=== PATIENT | female | born 1930 | race Hispanic/Latino ===

== ENCOUNTER 2017-12-30 21:56 | Observation (INO) | payer OTHER, MEDICARE ==
[~2017-12-30] VITALS: Ht 152.4 cm; Wt 56.7 kg
[2017-12-30] MEDS ORDERED: SODIUM CHLORIDE 0.9% 1000ML 2,000 ML IV ONE (22:20)
[2017-12-30 22:40] LABS: BASOPHILS % (AUTO) 0.4 % (0.0-5.0); EOSINOPHILS % (AUTO) 0.1 % (0.0-8.0); HEMATOCRIT 40.8 % (36-48); LYMPHOCYTES % (AUTO) 10.3 % (21.0-51.0); MEAN CORPUSCULAR HEMOGLOBIN 31.2 pg (27.0-33.0); MEAN CORPUSCULAR HGB CONC 34.6 g/dL (32.0-36.0); MEAN CORPUSCULAR VOLUME 90.1 fL (79-99); NEUTROPHILS % (AUTO) 78.2 % (40.0-77.0); PLATELET COUNT (AUTO) 260 K/uL (130-400); RED BLOOD CELL COUNT(AUTO) 4.53 MIL/uL (4.00-5.50); RED CELL DISTRIBUTION WIDTH 14.8 % (11.0-15.5); WHITE BLOOD COUNT (AUTO) 10.1 K/uL (4.8-10.8)
[2017-12-30 23:06] LABS: CREATININE 1.2 mg/dL (0.5-1.5); POTASSIUM 3.6 mmol/L (3.5-5.1)
[2017-12-30 23:10] LABS: ALBUMIN 3.4 g/dL (3.5-5.0); BILIRUBIN,TOTAL 0.5 mg/dL (0.2-1.0); TOTAL PROTEIN, SERUM 8.2 g/dL (6.0-8.3)
[2017-12-30 23:28] LABS: APPEARANCE,URINE Clear (CLEAR); BILIRUBIN,URINE Negative (NEGATIVE); COLOR,URINE Yellow (YELLOW); GLUCOSE, URINE (UA) Negative (NEGATIVE); KETONES,URINE Negative (NEGATIVE); LEUKOCYTE ESTERASE ,URINE Large (NEGATIVE); NITRATE,URINE Negative (NEGATIVE); OCCULT BLOOD,URINE Small (NEGATIVE); PH,URINE 5.5 (5.0-8.0); PROTEIN,URINE POS 1+ (NEGATIVE)
[2017-12-30 23:46] LABS: AMORPHOUS SEDIMENT,UR Moderate /LPF (None Seen); BACTERIA,URINE Few /HPF (None Seen); MUCUS,URINE Moderate LPF (None Seen); SQUAMOUS EPITHELIAL CELL,UR Many /HPF (0-2)
[2017-12-31] MEDS ORDERED: CEFTRIAXONE SODIUM 1 GM ONE (00:17)
[2017-12-31] MEDS ORDERED: ACETAMINOPHEN ELIXIR 650 MG/20.3 ML UDCUP ONE (00:17)
[2017-12-31] MEDS ORDERED: AZITHROMYCIN 250 MG TABLET PO ONE (00:18)
[2017-12-31] MEDS ORDERED: SODIUM CHLORIDE 0.9% 1000ML 1,000 ML IV ONE (02:03)
[2017-12-31] MEDS ORDERED: LEVOFLOXACIN 500 MG/D5W 100 ML 100 ML ONE (02:03)
[2017-12-31 02:45] VITALS: BP 131/68
[2017-12-31] MEDS ORDERED: SODIUM CHLORIDE 0.9% 1000ML 1,000 ML IV SCH (03:00)
[2017-12-31] MEDS ORDERED: MAG HYDROX/AL HYDROX/SIMETH ES 30 ML SUSP UDCUP PO PRN (03:15)
[2017-12-31] MEDS ORDERED: LIDOCAINE HCL-MPF 1% 2ML VIAL IJ PRN (03:15)
[2017-12-31] MEDS ORDERED: GLUCAGON 1MG KIT 1 MG ML IM PRN (03:15)
[2017-12-31] MEDS ORDERED: CLONIDINE HCL 0.1 MG TABLET PO PRN (03:15)
[2017-12-31] MEDS ORDERED: DEXTROSE 50%-WATER 50 ML DISP.SYRIN IV PRN (03:15)
[2017-12-31] MEDS ORDERED: GUAIFENESIN SUGAR-FREE 100 MG/5 ML UDCUP PO PRN (03:15)
[2017-12-31] MEDS ORDERED: ZOLPIDEM TARTRATE 5 MG TAB PO PRN (03:15)
[2017-12-31] MEDS ORDERED: GUAIFENESIN-DM 200/20 MG 10 ML PO PRN (03:15)
[2017-12-31] MEDS ORDERED: POTASSIUM CHLORIDE 20 MEQ ERTAB PO PRN ×2 (03:15→17:00)
[2017-12-31] MEDS ORDERED: NITROGLYCERIN 0.4 MG SL TAB SL PRN (03:15)
[2017-12-31] MEDS ORDERED: ONDANSETRON HCL 4 MG/2 ML VIAL IVP PRN (03:15)
[2017-12-31] MEDS ORDERED: DiphenhydrAMINE HCL 50 MG/ML VIAL IVP PRN (03:15)
[2017-12-31] MEDS ORDERED: POTASSIUM CHLORIDE 10% ELIXIR 20 MEQ/15 ML UDCUP PO PRN ×2 (03:15→17:00)
[2017-12-31] MEDS ORDERED: LACTULOSE 20 GM/30 ML UDCUP PO PRN (03:15)
[2017-12-31] MEDS ORDERED: ACETAMINOPHEN 325 MG TAB PO PRN ×2 (03:15)
[2017-12-31] MEDS ORDERED: POTASSIUM CHLORIDE 20MEQ/100ML 100 ML IV PRN ×2 (03:15→17:00)
[2017-12-31] MEDS ORDERED: DIPHENHYDRAMINE HCL 25 MG CAPSULE PO PRN (03:15)
[2017-12-31] MEDS: LEVOFLOXACIN 500 MG/D5W 100 ML 100 ML IV SCH (04:00)
[2017-12-31 04:36] VITALS: BP 110/60
[2017-12-31 05:45] LABS: HEMATOCRIT 37.6 % (36-48); MEAN CORPUSCULAR HEMOGLOBIN 31.3 pg (27.0-33.0); MEAN CORPUSCULAR HGB CONC 34.9 g/dL (32.0-36.0); MEAN CORPUSCULAR VOLUME 89.7 fL (79-99); PLATELET COUNT (AUTO) 252 K/uL (130-400); RED CELL DISTRIBUTION WIDTH 14.7 % (11.0-15.5); WHITE BLOOD COUNT (AUTO) 7.5 K/uL (4.8-10.8)
[2017-12-31 05:53] LABS: BILIRUBIN,TOTAL 0.4 mg/dL (0.2-1.0); CREATININE 1.1 mg/dL (0.5-1.5); POTASSIUM 3.4 mmol/L (3.5-5.1); TOTAL PROTEIN, SERUM 7.5 g/dL (6.0-8.3)
[2017-12-31] MEDS ORDERED: METF500T6 PO (08:06)
[2017-12-31] MEDS ORDERED: GABA-529 PO (08:06)
[2017-12-31] MEDS ORDERED: SIMV20TA6 PO (08:06)
[2017-12-31] MEDS ORDERED: METO-409 PO (08:06)
[2017-12-31] MEDS ORDERED: FOLI1TAB15 PO (08:06)
[2017-12-31] MEDS ORDERED: AMLO10TA2 PO (08:06)
[2017-12-31] MEDS ORDERED: LOSA1TAB54 PO (08:06)
[2017-12-31] MEDS ORDERED: DULO30CA51 PO (08:06)
[2017-12-31] MEDS ORDERED: OLOP2.5D6 OU (08:06)
[2017-12-31] MEDS ORDERED: PANT40TA25 PO (08:06)
[2017-12-31] MEDS ORDERED: LORA10TA7 PO (08:06)
[2017-12-31] MEDS ORDERED: TRAM50TA4 PO (08:06)
[2017-12-31] MEDS ORDERED: ISOS30TA6 PO (08:06)
[2017-12-31] MEDS ORDERED: PIOG15TA66 PO (08:06)
[2017-12-31] MEDS ORDERED: TRAZ-185 PO (08:06)
[2017-12-31] MEDS ORDERED: MEMA5TAB15 PO (08:06)
[2017-12-31] MEDS ORDERED: ASPI-1181 PO (08:06)
[2017-12-31 09:14] VITALS: BP 140/88
[2017-12-31] MEDS: FAMOTIDINE 20MG TAB 20 MG TAB PO SCH (10:11)
[2017-12-31 12:00] VITALS: BP 116/67
[2017-12-31 17:00] VITALS: BP 128/68
[2017-12-31] MEDS ORDERED: TRAZODONE HCL 50 MG TAB PO PRN (17:00)
[2017-12-31] MEDS ORDERED: LIDOCAINE HCL-MPF 1% 2ML VIAL IVP PRN (17:00)
[2017-12-31] MEDS ORDERED: TRAMADOL HCL 50 MG TABLET PO PRN (17:00)
[2017-12-31] MEDS: METOPROLOL TARTRATE 50 MG TAB PO SCH (20:39)
[2017-12-31 20:40] VITALS: BP 115/77
[2017-12-31] MEDS ORDERED: GABAPENTIN 100 MG CAPSULE PO SCH (21:00)
[2017-12-31] MEDS ORDERED: ATORVASTATIN CALCIUM 10 MG TABLET PO SCH (21:00)
[2017-12-31] MEDS ORDERED: OLOPATADINE HCL OU SCH (21:00)
[2018-01-01 00:05] VITALS: BP 112/64
[2018-01-01 03:43] VITALS: BP 126/68
[2018-01-01] MEDS: LEVOFLOXACIN 500 MG/D5W 100 ML 100 ML IV SCH (04:00)
[2018-01-01 05:20] LABS: BASOPHILS % (AUTO) 1.3 % (0.0-5.0); EOSINOPHILS % (AUTO) 0.2 % (0.0-8.0); HEMATOCRIT 40.6 % (36-48); LYMPHOCYTES % (AUTO) 29.3 % (21.0-51.0); MEAN CORPUSCULAR HEMOGLOBIN 31.1 pg (27.0-33.0); MEAN CORPUSCULAR VOLUME 91.5 fL (79-99); MONOCYTES % (AUTO) 22.5 % (3.0-13.0); NEUTROPHILS % (AUTO) 46.7 % (40.0-77.0); PLATELET COUNT (AUTO) 228 K/uL (130-400); RED BLOOD CELL COUNT(AUTO) 4.44 MIL/uL (4.00-5.50); WHITE BLOOD COUNT (AUTO) 3.3 K/uL (4.8-10.8)
[2018-01-01] MEDS ORDERED: METFORMIN HCL 500 MG TABLET PO SCH (08:00)
[2018-01-01] MEDS ORDERED: PANTOPRAZOLE SODIUM 40 MG TABLET.DR PO SCH (09:00)
[2018-01-01] MEDS ORDERED: AMLODIPINE BESYLATE 5 MG TAB PO SCH (09:00)
[2018-01-01] MEDS ORDERED: LOSARTAN/HYDROCHLOROTHIAZIDE 50-12.5MG TABLET PO SCH (09:00)
[2018-01-01] MEDS ORDERED: FOLIC ACID 1 MG TABLET PO SCH (09:00)
[2018-01-01] MEDS ORDERED: DULOXETINE HCL 30 MG CAP PO SCH (09:00)
[2018-01-01] MEDS ORDERED: LORATADINE 10 MG TABLET PO SCH (09:00)
[2018-01-01] MEDS ORDERED: MEMANTINE HCL 5 MG TABLET PO SCH (09:00)
[2018-01-01] MEDS ORDERED: ISOSORBIDE MONO 30MG TAB SR PO SCH (09:00)
[2018-01-01] MEDS ORDERED: PIOGLITAZONE HCL 15 MG TAB PO SCH (09:00)
[2018-01-01] MEDS ORDERED: ASPIRIN 81 MG EC TAB PO SCH (09:00)
[2018-01-01 09:25] VITALS: BP 129/69
[2018-01-01] MEDS: FAMOTIDINE 20MG TAB 20 MG TAB PO SCH (11:21)
[2018-01-01] MEDS: METOPROLOL TARTRATE 50 MG TAB PO SCH (11:23)
== END 2018-01-01 12:26 | disposition home or self-care (01) ==
LOC: EDH 21:56 → EDHIP 12-31 00:58 → 3DH 12-31 03:32
PROVIDERS: ADMIT Family Medicine; ATTEND Family Medicine
DX: R50.9 Fever, unspecified (principal); E11.9 Type 2 diabetes mellitus without complications; E78.5 Hyperlipidemia, unspecified; I10 Essential (primary) hypertension
CPT/HCPCS: 36415 ×3; 71045; 80053 ×2; 81001; 82948 ×6; 83605; 84484; 85025 ×2; 85027; 87040 ×2; 87088; 93005; 96365; 99285; G0378 ×35; J0696; J1956 ×2; J7030 ×2; 96374; 96376

== ENCOUNTER 2020-04-22 10:19 | Inpatient (IN) | payer OTHER, MEDICARE ==
[~2020-04-22] VITALS: Ht 157.5 cm; Wt 56.7 kg
[~2020-04-22 10:19] MED LIST: AMLO10TA7 PO; ASPI-1443 PO; DULO30CA52 PO; FOLI1TAB15 PO; GABA-529 PO; ISOS30TA6 PO; LORA10TA7 PO; LOSA1TAB54 PO; MEMA5TAB42 PO; METF-444 PO; METO-409 PO; OLOP2.5D6 OU; PANT40TA54 PO; PIOG15TA66 PO; SIMV-43 PO; TRAM50TA4 PO; TRAZ-185 PO
[2020-04-22 10:50] LABS: APPEARANCE,URINE Turbid (CLEAR); BILIRUBIN,URINE Negative (NEGATIVE); COLOR,URINE Yellow (YELLOW); GLUCOSE, URINE (UA) Negative (NEGATIVE); KETONES,URINE Negative (NEGATIVE); LEUKOCYTE ESTERASE ,URINE Large (NEGATIVE); NITRATE,URINE Negative (NEGATIVE); OCCULT BLOOD,URINE Moderate (NEGATIVE); PROTEIN,URINE 300 mg/dL (NEGATIVE)
[2020-04-22 10:50] LABS: BASOPHILS % (AUTO) 0.4 % (0.0-5.0); EOSINOPHILS % (AUTO) 0.2 % (0.0-8.0); HEMATOCRIT 45.5 % (36-48); MEAN CORPUSCULAR HEMOGLOBIN 30.6 pg (27.0-33.0); MEAN CORPUSCULAR HGB CONC 33.8 g/dL (32.0-36.0); MEAN CORPUSCULAR VOLUME 90.5 fL (79-99); MONOCYTES % (AUTO) 6.4 % (3.0-13.0); NEUTROPHILS % (AUTO) 72.6 % (40.0-77.0); PLATELET COUNT (AUTO) 182 K/uL (130-400); RED BLOOD CELL COUNT(AUTO) 5.03 MIL/uL (4.00-5.50); RED CELL DISTRIBUTION WIDTH 14.2 % (11.0-15.5); WHITE BLOOD COUNT (AUTO) 16.2 K/uL (4.8-10.8)
[2020-04-22 10:56] LABS: CARBON DIOXIDE 27 mmol/L (21-32); CHLORIDE 101 mmol/L (101-111); CREATININE 2.4 mg/dL (0.5-1.5); GLOMERULAR FILTR. RATE CALC 20 mL/min (>60); GLUCOSE,RANDOM 143 mg/dL (70-105); POTASSIUM 3.6 mmol/L (3.5-5.1); SODIUM SERUM 142 mmol/L (136-145); UREA NITROGEN, BLOOD 45 mg/dL (7-18)
[2020-04-22] MEDS ORDERED: METHYLPREDNISOLONE SOD SUCC 40MG/ML 1ML ONE (10:56)
[2020-04-22] MEDS ORDERED: CEFTRIAXONE SODIUM 2 GM VIAL ONE (10:56)
[2020-04-22 11:07] LABS: ALANINE AMINOTRANSFERASE 20 U/L (12-78); ALBUMIN 4.3 g/dL (3.5-5.0); ASPARTATE AMINOTRANSFERASE 25 U/L (10-37); CREATINE KINASE, TOTAL 105 U/L (21-232); MYOGLOBIN 267 ng/mL (10-92); TOTAL PROTEIN, SERUM 8.9 g/dL (6.0-8.3); TROPONIN I < 0.04 ng/mL (0.00-0.06)
[2020-04-22 11:16] LABS: BACTERIA,URINE Many /HPF (None Seen); RBC,URINE 51-100 /HPF (0-1); WBC,URINE >100 /HPF (0-1)
[2020-04-22] MEDS ORDERED: LORAZEPAM 2 MG/ML 1 ML VIAL ONE (11:19)
[2020-04-22 11:30] LABS: INR 0.98 (0.85-1.15); PARTIAL THROMBOPLASTIN TIME 30.5 SEC (26.3-35.5); PROTHROMBIN TIME 10.6 SEC (9.6-11.6)
[2020-04-22] MEDS ORDERED: ACETAMINOPHEN 325 MG TAB ONE (14:25)
[2020-04-22] MEDS ORDERED: ACETAMINOPHEN 325 MG TAB PO PRN (14:45)
[2020-04-22] MEDS ORDERED: POTASSIUM CHLORIDE 20 MEQ ERTAB PO PRN (14:45)
[2020-04-22] MEDS ORDERED: LIDOCAINE HCL-MPF 1% 2ML VIAL IV PRN (14:45)
[2020-04-22] MEDS: SODIUM CHLORIDE 0.9% 1000ML 1,000 ML IV SCH (14:45)
[2020-04-22] MEDS ORDERED: MAGNESIUM 2GM PREMIX 50ML 50 ML IV PRN (14:45)
[2020-04-22] MEDS ORDERED: HYDRALAZINE HCL 20 MG/ML VIAL IV PRN (14:45)
[2020-04-22] MEDS ORDERED: GLUCAGON 1MG KIT 1 MG ML IM PRN (14:45)
[2020-04-22] MEDS ORDERED: DEXTROSE 50%-WATER 50 ML DISP.SYRIN IV PRN (14:45)
[2020-04-22] MEDS ORDERED: LABETALOL 20 MG/4 ML DISP.SYRIN IV PRN (14:45)
[2020-04-22] MEDS ORDERED: HYDROMORPHONE HCL 0.5 MG/0.5 ML ML IVP PRN (14:45)
[2020-04-22] MEDS ORDERED: HYDRALAZINE HCL 20 MG/ML VIAL ONE (15:04)
[2020-04-22] MEDS: INSULIN HUMULIN R 100 UNIT/ML 3ML SQ SCH ×2 (16:30→21:00)
[2020-04-22] MEDS ORDERED: INSULIN HUMULIN R 100 UNIT/ML 3ML ONE (17:31)
[2020-04-22 18:15] VITALS: BP 128/83
--- NOTE | 2020-04-22 18:53 | NUR ---
Patient received from ED at 1815 in room 402. VSS with no complaints of pain or discomfort. Patient A/OX2 only. Telepak placed. Patient's family (Peg-granddaughter) notified of current status.
[2020-04-22 19:15] VITALS: BP 128/83
[2020-04-22 19:30] VITALS: BP 128/83
[2020-04-22 19:45] VITALS: BP 128/83
[2020-04-22] MEDS: GABAPENTIN 100 MG CAPSULE PO SCH (21:00)
[2020-04-22] MEDS: HEPARIN SODIUM 5000UNIT/ML 1ML VIAL SQ SCH (21:00)
[2020-04-22] MEDS: OLOPATADINE HCL 0.1% 5ML DROPS OU SCH (21:00)
[2020-04-22] MEDS: SIMVASTATIN 20 MG TABLET PO SCH (21:00)
[2020-04-22 23:30] VITALS: BP 134/75
[2020-04-22] MEDS: HALOPERIDOL LACTATE 5 MG/ML VIAL IM SCH (23:45)
[2020-04-22] MEDS ORDERED: HALOPERIDOL LACTATE 5 MG/ML VIAL ONE (23:48)
[2020-04-23] MEDS ORDERED: HALOPERIDOL LACTATE 5 MG/ML VIAL ONE (00:50)
[2020-04-23 02:50] VITALS: BP 134/75
[2020-04-23 03:47] LABS: ABG BASE EXCESS 0.6 mmol/L (-2.0-3.0); ABG HCO3 22.5 mmol/L (21.0-28.0); ABG OXYGEN SATURATION 91.6 % (95.0-99.0); ABG PCO2 29 mmHg (32-45)
--- NOTE | 2020-04-23 05:05 | NUR ---
@2202 - pt refused meds, FAISAL Figueroa assisted with translating and pt continued to refuse night medications (Neurontin, Zocor, Heparin) @230 - paged benchmark bundle person in reference to pt pulling and removing medical devices (tele leads and pads, gown, brief, removal of PIV), fighting staff @2309 - Tiffany Encarnacion KNOWLEDGE MANAGEMENT ADVISOR returned page and informed of pts status and refusal; KNOWLEDGE MANAGEMENT ADVISOR ordered "2.5mg Haldol IM NOW and redo in 1 hour if ineffective" @0000 - pt administered 2.5mg Haldol IM; pt continued to removal tele leads, refuses PIV access, refuses gown and brief, refuses treatments; pt placed in mittens, which were removed by pt twice and continues to fight with staff @0110 - pt administered 2.5mg Haldol IM; pt started o calm down and was cooperative for vitals and ABG retrieval @0530 - pt cooperated for network technical analyst and received CXR; pt continues to refuse PIV placement
[2020-04-23] MEDS: SODIUM CHLORIDE 0.9% 1000ML 1,000 ML IV SCH ×2 (06:05→17:25)
[2020-04-23] MEDS: INSULIN HUMULIN R 100 UNIT/ML 3ML SQ SCH ×4 (06:23→19:26)
[2020-04-23 06:33] LABS: BASOPHILS % (AUTO) 0.3 % (0.0-5.0); HEMATOCRIT 43.3 % (36-48); LYMPHOCYTES % (AUTO) 12.6 % (21.0-51.0); MEAN CORPUSCULAR HEMOGLOBIN 30.5 pg (27.0-33.0); MEAN CORPUSCULAR HGB CONC 33.5 g/dL (32.0-36.0); MONOCYTES % (AUTO) 7.8 % (3.0-13.0); NEUTROPHILS % (AUTO) 78.8 % (40.0-77.0); PLATELET COUNT (AUTO) 161 K/uL (130-400); RED BLOOD CELL COUNT(AUTO) 4.76 MIL/uL (4.00-5.50); WHITE BLOOD COUNT (AUTO) 17.8 K/uL (4.8-10.8)
[2020-04-23 07:46] LABS: ALBUMIN 4.1 g/dL (3.5-5.0); BILIRUBIN,DIRECT 0.3 mg/dL (0.0-0.3); BILIRUBIN,TOTAL 0.9 mg/dL (0.2-1.0); CREATININE 1.7 mg/dL (0.5-1.5); MAGNESIUM 1.9 mg/dL (1.80-2.40); PHOSPHORUS 2.7 mg/dL (2.5-4.9); TOTAL PROTEIN, SERUM 8.5 g/dL (6.0-8.3)
[2020-04-23 08:00] VITALS: BP 157/83
[2020-04-23 08:05] LABS: POTASSIUM 2.8 mmol/L (3.5-5.1)
[2020-04-23] MEDS ORDERED: LOSARTAN/HYDROCHLOROTHIAZIDE 50-12.5MG TABLET PO SCH (09:00)
[2020-04-23] MEDS: DULOXETINE HCL 30 MG CAP PO SCH (09:36)
[2020-04-23] MEDS: FOLIC ACID 1 MG TABLET PO SCH (09:36)
[2020-04-23] MEDS: MEMANTINE HCL 5 MG TABLET PO SCH (09:37)
[2020-04-23] MEDS: ASPIRIN 81 MG EC TAB PO SCH (09:37)
[2020-04-23] MEDS: PANTOPRAZOLE SODIUM 40 MG TABLET.DR PO SCH (09:37)
[2020-04-23] MEDS: AMLODIPINE BESYLATE 5 MG TAB PO SCH (09:37)
[2020-04-23] MEDS: ISOSORBIDE MONO 30MG TAB SR PO SCH (09:37)
[2020-04-23] MEDS: LORATADINE 10 MG TABLET PO SCH (09:48)
[2020-04-23] MEDS: METOPROLOL SUCCINATE 50 MG TAB.SR.24H PO SCH (09:49)
[2020-04-23] MEDS: HEPARIN SODIUM 5000UNIT/ML 1ML VIAL SQ SCH ×2 (09:58→20:04)
[2020-04-23] MEDS: POTASSIUM CHLORIDE 10% ELIXIR 20 MEQ/15 ML UDCUP PO PRN ×3 (09:59→16:02)
[2020-04-23] MEDS: POTASSIUM CHLORIDE 20MEQ/100ML 100 ML IV PRN (10:50)
[2020-04-23] MEDS: CEFTRIAXONE SODIUM 1 GM IV SCH (10:51)
[2020-04-23 12:00] VITALS: BP 127/87
--- NOTE | 2020-04-23 12:30 | NUR ---
ASSUMED CARE OF PT.1:[address] FOR DX. OF AMS,
--- NOTE | 2020-04-23 14:49 | NUR ---
CM NOTE/IA UNABLE TO MEET WITH PATIENT IN ROOM. PER NURSE, PATIENT IS CONFUSED, NEXT OF KIN CALLED, CHESTER HAMM. PER POA/GRANDDAUGHTER, PATIENT IS SEMI INDEPENDENT WITH ADLS REQUIRING HELP WITH BATHING AND TRANSFERRING, LIVES WITH HER, HER AND ADULT DAUGHTER, HAS USE OF CANE AND IS PENDING A WC, SC AND WALKER FROM DR. MCKEON, HAS PROVIDER 30 HER PER WEEK (POA/GRANDDAUGHTER IS PROVIDER), FAMILY DRIVES TO APPOINTMENTS AND FEELS SAFE FOR PATIENT TO RETURN HOME ONCE STABLE. Addendum: 04/23/20 at 1456 by BOAZ LUCIANO RN CM Amended: Links added.
[2020-04-23 16:00] VITALS: BP 140/93
--- NOTE | 2020-04-23 16:49 | NUR ---
[id number] received telephone consent from CHELSEA Correia [phone] for IM Letter, I faxed IM Letter to [phone].
--- NOTE | 2020-04-23 18:15 | NUR ---
INCONTINENT CARE RENDERED, HAS BEEN QUIET AND CO OPERATIVE.
[2020-04-23 19:33] VITALS: BP 150/96
[2020-04-23] MEDS: GABAPENTIN 100 MG CAPSULE PO SCH (20:03)
[2020-04-23] MEDS: SIMVASTATIN 20 MG TABLET PO SCH (20:04)
[2020-04-23] MEDS: OLOPATADINE HCL 0.1% 5ML DROPS OU SCH (21:00)
[2020-04-23] MEDS: HALOPERIDOL LACTATE 5 MG/ML VIAL IM SCH (23:45)
[2020-04-24] VITALS (7 sets, daily range): BP systolic 125–161; BP diastolic 84–99
[2020-04-24] MEDS: SODIUM CHLORIDE 0.9% 1000ML 1,000 ML IV SCH ×2 (01:27→21:26)
--- NOTE | 2020-04-24 05:17 | NUR ---
assessment pt. alert to self. slept well through the night. i held her midnight haldol. pm blood sugar was 105 no coverage needed. vitals are stable will continue to monitor.
[2020-04-24] MEDS: INSULIN HUMULIN R 100 UNIT/ML 3ML SQ SCH ×4 (05:34→21:00)
[2020-04-24 05:49] LABS: HEMATOCRIT 40.8 % (36-48); MEAN CORPUSCULAR HEMOGLOBIN 30.9 pg (27.0-33.0); MEAN CORPUSCULAR HGB CONC 33.8 g/dL (32.0-36.0); MEAN CORPUSCULAR VOLUME 91.3 fL (79-99); RED BLOOD CELL COUNT(AUTO) 4.47 MIL/uL (4.00-5.50); RED CELL DISTRIBUTION WIDTH 14.5 % (11.0-15.5); WHITE BLOOD COUNT (AUTO) 12.7 K/uL (4.8-10.8)
[2020-04-24 06:24] LABS: CARBON DIOXIDE 22 mmol/L (21-32); CHLORIDE 105 mmol/L (101-111); CREATININE 1.3 mg/dL (0.5-1.5); GLOMERULAR FILTR. RATE CALC 41 mL/min (>60); GLUCOSE,RANDOM 96 mg/dL (70-105); PHOSPHORUS 2.8 mg/dL (2.5-4.9); POTASSIUM 3.6 mmol/L (3.5-5.1); SODIUM SERUM 141 mmol/L (136-145); UREA NITROGEN, BLOOD 35 mg/dL (7-18)
--- NOTE | 2020-04-24 08:00 | NUR ---
HAS 1:[address] , DX. AMS DX. WHEN ADMITTED.
[2020-04-24] MEDS: METOPROLOL SUCCINATE 50 MG TAB.SR.24H PO SCH (09:11)
[2020-04-24] MEDS: CEFTRIAXONE SODIUM 1 GM IV SCH (09:11)
[2020-04-24] MEDS: DULOXETINE HCL 30 MG CAP PO SCH (09:11)
[2020-04-24] MEDS: LORATADINE 10 MG TABLET PO SCH (09:12)
[2020-04-24] MEDS: PANTOPRAZOLE SODIUM 40 MG TABLET.DR PO SCH (09:12)
[2020-04-24] MEDS: FOLIC ACID 1 MG TABLET PO SCH (09:12)
[2020-04-24] MEDS: ASPIRIN 81 MG EC TAB PO SCH (09:12)
[2020-04-24] MEDS: AMLODIPINE BESYLATE 5 MG TAB PO SCH (09:12)
[2020-04-24] MEDS: ISOSORBIDE MONO 30MG TAB SR PO SCH (09:12)
[2020-04-24] MEDS: MEMANTINE HCL 5 MG TABLET PO SCH (09:12)
[2020-04-24] MEDS: HEPARIN SODIUM 5000UNIT/ML 1ML VIAL SQ SCH ×2 (09:27→20:46)
--- NOTE | 2020-04-24 18:00 | NUR ---
SEVERAL FAMILY MEMBERS CALLED THROUGHOUT THE DAY. CALLS SEND TO [facility] TO CONVERSE WITH THEM.
--- NOTE | 2020-04-24 19:16 | NUR ---
REPORT ENDORSED TO NURSE MOORE, PATIENT TRANSFERRED TO 3RD. FLOOR ROOM 326.. ALL PERSONAL BELONGINGS SEND.
[2020-04-24] MEDS: SIMVASTATIN 20 MG TABLET PO SCH (20:41)
[2020-04-24] MEDS: GABAPENTIN 100 MG CAPSULE PO SCH (20:41)
[2020-04-24] MEDS: OLOPATADINE HCL 0.1% 5ML DROPS OU SCH (21:00)
[2020-04-24] MEDS: HYDROMORPHONE 1 MG/1 ML AMP IVP PRN (22:56)
[2020-04-24] MEDS: HALOPERIDOL LACTATE 5 MG/ML VIAL IM SCH (22:56)
[2020-04-25] MEDS: HYDROMORPHONE 1 MG/1 ML AMP IVP PRN ×4 (00:45→04:56)
[2020-04-25 04:44] LABS: BASOPHILS % (AUTO) 0.7 % (0.0-5.0); EOSINOPHILS % (AUTO) 1.5 % (0.0-8.0); HEMATOCRIT 40.9 % (36-48); LYMPHOCYTES % (AUTO) 25.8 % (21.0-51.0); MEAN CORPUSCULAR HEMOGLOBIN 30.5 pg (27.0-33.0); MEAN CORPUSCULAR VOLUME 89.7 fL (79-99); MONOCYTES % (AUTO) 7.4 % (3.0-13.0); PLATELET COUNT (AUTO) 172 K/uL (130-400); RED BLOOD CELL COUNT(AUTO) 4.56 MIL/uL (4.00-5.50)
[2020-04-25 04:52] LABS: CREATININE 1.2 mg/dL (0.5-1.5)
[2020-04-25 04:53] LABS: POTASSIUM 2.9 mmol/L (3.5-5.1)
[2020-04-25] MEDS: INSULIN HUMULIN R 100 UNIT/ML 3ML SQ SCH ×4 (05:40→21:00)
[2020-04-25] MEDS: POTASSIUM CHLORIDE 10% ELIXIR 20 MEQ/15 ML UDCUP PO PRN ×3 (05:42→21:04)
[2020-04-25] MEDS: POTASSIUM CHLORIDE 20MEQ/100ML 100 ML IV PRN (05:48)
[2020-04-25 07:58] VITALS: BP 161/96
[2020-04-25] MEDS: ASPIRIN 81 MG EC TAB PO SCH (09:06)
[2020-04-25] MEDS: AMLODIPINE BESYLATE 5 MG TAB PO SCH (09:06)
[2020-04-25] MEDS: DULOXETINE HCL 30 MG CAP PO SCH (09:06)
[2020-04-25] MEDS: METOPROLOL SUCCINATE 50 MG TAB.SR.24H PO SCH (09:06)
[2020-04-25] MEDS: PANTOPRAZOLE SODIUM 40 MG TABLET.DR PO SCH (09:06)
[2020-04-25] MEDS: ISOSORBIDE MONO 30MG TAB SR PO SCH (09:06)
[2020-04-25] MEDS: MEMANTINE HCL 5 MG TABLET PO SCH (09:06)
[2020-04-25] MEDS: CEFTRIAXONE SODIUM 1 GM IV SCH (09:06)
[2020-04-25] MEDS: FOLIC ACID 1 MG TABLET PO SCH (09:07)
[2020-04-25] MEDS: LORATADINE 10 MG TABLET PO SCH (09:07)
[2020-04-25] MEDS: HEPARIN SODIUM 5000UNIT/ML 1ML VIAL SQ SCH ×2 (09:08→21:01)
[2020-04-25] MEDS: SODIUM CHLORIDE 0.9% 1000ML 1,000 ML IV SCH (09:31)
[2020-04-25 12:00] VITALS: BP 142/87
[2020-04-25 15:08] LABS: MAGNESIUM 2.8 mg/dL (1.80-2.40); POTASSIUM 3.4 mmol/L (3.5-5.1)
[2020-04-25 16:00] VITALS: BP 117/73
[2020-04-25 20:05] VITALS: BP 115/72
[2020-04-25] MEDS: OLOPATADINE HCL 0.1% 5ML DROPS OU SCH (21:00)
[2020-04-25] MEDS: GABAPENTIN 100 MG CAPSULE PO SCH (21:00)
[2020-04-25] MEDS: SIMVASTATIN 20 MG TABLET PO SCH (21:01)
[2020-04-25] MEDS: HALOPERIDOL LACTATE 5 MG/ML VIAL IM SCH (23:45)
[2020-04-26] VITALS: BP 113/76
[2020-04-26 04:33] VITALS: BP 123/77
[2020-04-26 05:01] LABS: HEMATOCRIT 38.1 % (36-48); MEAN CORPUSCULAR HEMOGLOBIN 30.8 pg (27.0-33.0); MEAN CORPUSCULAR HGB CONC 33.6 g/dL (32.0-36.0); MEAN CORPUSCULAR VOLUME 91.6 fL (79-99); RED BLOOD CELL COUNT(AUTO) 4.16 MIL/uL (4.00-5.50); RED CELL DISTRIBUTION WIDTH 14.1 % (11.0-15.5); WHITE BLOOD COUNT (AUTO) 8.4 K/uL (4.8-10.8)
[2020-04-26 05:37] LABS: CREATININE 1.2 mg/dL (0.5-1.5); MAGNESIUM 2.3 mg/dL (1.80-2.40); POTASSIUM 3.4 mmol/L (3.5-5.1)
[2020-04-26] MEDS: INSULIN HUMULIN R 100 UNIT/ML 3ML SQ SCH ×3 (07:30→16:19)
[2020-04-26 08:33] VITALS: BP 133/74
[2020-04-26] MEDS: HEPARIN SODIUM 5000UNIT/ML 1ML VIAL SQ SCH (09:13)
[2020-04-26] MEDS: MEMANTINE HCL 5 MG TABLET PO SCH (09:14)
[2020-04-26] MEDS: ISOSORBIDE MONO 30MG TAB SR PO SCH (09:14)
[2020-04-26] MEDS: FOLIC ACID 1 MG TABLET PO SCH (09:14)
[2020-04-26] MEDS: LORATADINE 10 MG TABLET PO SCH (09:14)
[2020-04-26] MEDS: METOPROLOL SUCCINATE 50 MG TAB.SR.24H PO SCH (09:14)
[2020-04-26] MEDS: DULOXETINE HCL 30 MG CAP PO SCH (09:14)
[2020-04-26] MEDS: PANTOPRAZOLE SODIUM 40 MG TABLET.DR PO SCH (09:14)
[2020-04-26] MEDS: POTASSIUM CHLORIDE 10% ELIXIR 20 MEQ/15 ML UDCUP PO PRN (09:14)
[2020-04-26] MEDS: ASPIRIN 81 MG EC TAB PO SCH (09:14)
[2020-04-26] MEDS: AMLODIPINE BESYLATE 5 MG TAB PO SCH (09:14)
[2020-04-26] MEDS: CEFTRIAXONE SODIUM 1 GM IV SCH (09:15)
[2020-04-26] MEDS ORDERED: NITR100C PO (13:31)
[2020-04-26 16:18] VITALS: BP 111/65
--- NOTE | 2020-04-26 16:20 | NUR ---
DISCHARGE PATIENT AND GRAND DAUGHTER CHESTER VITAL GIVEN DISCHARGE INSTRUCTIONS ON FOLLOW UP APPOINTMENT AND NEW PRESCRIBED MEDICATIONS. CHESTER VERBALIZED UNDERSTANDING OF ALL EDUCATION GIVEN VIA TEACH BACK. 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
[2020-06-05] MEDS ORDERED: CALC-877 PO (00:25)
[2020-06-05] MEDS ORDERED: PRAV20TA4 PO (00:25)
[2020-06-05] MEDS ORDERED: ASCO500T92 PO (00:25)
[2020-06-05] MEDS ORDERED: BACL10TA PO (00:25)
[2020-06-05] MEDS ORDERED: MELO-108 PO (00:25)
[2020-06-05] MEDS ORDERED: ESCI10TA54 PO (00:25)
[2020-06-05] MEDS ORDERED: ISOS30TA6 PO (00:25)
[2020-06-05] MEDS ORDERED: ALPR0.255 PO (00:25)
[2020-06-05] MEDS ORDERED: QUET25TA74 PO (00:26)
== END 2020-04-26 18:59 | disposition home or self-care (01) | DRG 682 ==
LOC: EDH 10:19 → OBSVTOIN 14:40 → EDHIP 14:40 → 4AH 18:23 → 4BH 04-23 07:26 → 3DH 04-24 20:43
PROVIDERS: ADMIT Internal Medicine Critical Care Medicine; ATTEND Internal Medicine Critical Care Medicine
DX: N17.9 Acute kidney failure, unspecified (principal); G93.41 Metabolic encephalopathy; N39.0 Urinary tract infection, site not specified; Z03.818 Encounter for observation for suspected exposure to other biological agents ruled out; E11.9 Type 2 diabetes mellitus without complications; I10 Essential (primary) hypertension; E78.5 Hyperlipidemia, unspecified; B96.20 Unspecified Escherichia coli [E. coli] as the cause of diseases classified elsewhere; F03.90 Unspecified dementia, unspecified severity, without behavioral disturbance, psychotic disturbance, mood disturbance, and anxiety; Z79.84 Long term (current) use of oral hypoglycemic drugs
CPT/HCPCS: 36415; 36600; 71045; 72170; 80048; 80053; 80076; 81001; 82550; 82728; 82803; 82948; 83036; 83605; 83735; 83874; 84100; 84132; 84145; 84484; 85025; 85027; 85378; 85610; 85730; 86900; 86901; 87040; 87077; 87088; 87186; 93005; 97039; G0378; J0360; J0696; J1170; J1630; J1644; J1815; J2060; J2920; J3475; J3480; J3490; U0003

== ENCOUNTER 2020-07-07 13:28 | Inpatient (IN) | payer OTHER, MEDICARE ==
[~2020-07-07] VITALS: Ht 147.3 cm; Wt 55.6 kg
[~2020-07-07 13:28] MED LIST changes: +ALPR0.255 PO; -AMLO10TA7 PO; +ASCO500T92 PO; +BACL10TA PO; +CALC-877 PO; -DULO30CA52 PO; +ESCI10TA54 PO; -FOLI1TAB15 PO; -LORA10TA7 PO; +MELO-108 PO; -MEMA5TAB42 PO; -METO-409 PO; -OLOP2.5D6 OU; -PANT40TA54 PO; +PRAV20TA4 PO; +QUET25TA74 PO; -SIMV-43 PO; -TRAM50TA4 PO; -TRAZ-185 PO
[2020-07-07] MEDS ORDERED: CEFTRIAXONE SODIUM 2 GM VIAL ONE (14:06)
[2020-07-07] MEDS ORDERED: ONDANSETRON HCL 4 MG/2 ML VIAL ONE (14:06)
[2020-07-07] MEDS ORDERED: PANTOPRAZOLE 40 MG/VIAL ONE (14:07)
[2020-07-07] MEDS ORDERED: SODIUM CHLORIDE 0.9% 500ML 500 ML IV ONE (14:07)
[2020-07-07 14:11] LABS: BASOPHILS % (AUTO) 0.6 % (0.0-5.0); EOSINOPHILS % (AUTO) 0.6 % (0.0-8.0); HEMATOCRIT 36.2 % (36-48); LYMPHOCYTES % (AUTO) 21.6 % (21.0-51.0); MEAN CORPUSCULAR HEMOGLOBIN 30.8 pg (27.0-33.0); MEAN CORPUSCULAR HGB CONC 33.1 g/dL (32.0-36.0); MEAN CORPUSCULAR VOLUME 92.8 fL (79-99); MONOCYTES % (AUTO) 5.3 % (3.0-13.0); NEUTROPHILS % (AUTO) 71.5 % (40.0-77.0); PLATELET COUNT (AUTO) 125 K/uL (130-400); RED CELL DISTRIBUTION WIDTH 13.9 % (11.0-15.5); WHITE BLOOD COUNT (AUTO) 11.2 K/uL (4.8-10.8)
[2020-07-07 14:21] LABS: CREATININE 1.7 mg/dL (0.5-1.5); INR 0.94 (0.85-1.15); PARTIAL THROMBOPLASTIN TIME 29.2 SEC (26.3-35.5); POTASSIUM 4.1 mmol/L (3.5-5.1); PROTHROMBIN TIME 10.2 SEC (9.6-11.6)
[2020-07-07 14:25] LABS: ALBUMIN 3.6 g/dL (3.5-5.0); BILIRUBIN,DIRECT 0.1 mg/dL (0.0-0.3); BILIRUBIN,TOTAL 0.6 mg/dL (0.2-1.0); TOTAL PROTEIN, SERUM 7.8 g/dL (6.0-8.3)
[2020-07-07] MEDS ORDERED: ONDANSETRON HCL 4 MG/2 ML VIAL IV PRN (17:15)
[2020-07-07] MEDS ORDERED: ACETAMINOPHEN 325 MG TAB PO PRN ×2 (17:15)
[2020-07-07] MEDS: SODIUM CHLORIDE 0.9% 1000ML 1,000 ML IV SCH (17:15)
[2020-07-07] MEDS ORDERED: LACTULOSE 20 GM/30 ML UDCUP PO PRN (17:15)
[2020-07-07 18:32] LABS: HEMATOCRIT 32.4 % (36-48)
[2020-07-07 18:35] LABS: APPEARANCE,URINE Clear (CLEAR); BILIRUBIN,URINE Negative (NEGATIVE); COLOR,URINE Yellow (YELLOW); GLUCOSE, URINE (UA) Negative (NEGATIVE); KETONES,URINE Negative (NEGATIVE); LEUKOCYTE ESTERASE ,URINE Small (NEGATIVE); NITRATE,URINE Positive (NEGATIVE); OCCULT BLOOD,URINE Trace (NEGATIVE); PH,URINE 7.5 (5.0-8.0); PROTEIN,URINE Negative (NEGATIVE); UROBILINOGEN,URINE 0.2 mg/dL (0.2-1.0)
[2020-07-07 19:03] LABS: RBC,URINE 0-1 /HPF (0-1)
[2020-07-07 19:15] LABS: BACTERIA,URINE Few /HPF (None Seen)
[2020-07-07 19:17] LABS: SQUAMOUS EPITHELIAL CELL,UR Few /HPF (0-2)
[2020-07-07 19:18] LABS: TRANSITIONAL EPI CELLS,URINE Rare /HPF (None Seen)
[2020-07-07 21:00] VITALS: BP 143/67
--- NOTE | 2020-07-07 21:00 | NUR ---
Admission Assessment Received pt from ED per stretcher with no family around, pt awake, alert, oriented to name/place, re-oriented with time. Routine admission assessment done, plan of care discuss with the pt & made aware possible 1-2 days hospital stay. Pt currently denies discomfort, with NS at 100cc/hr infusing well. Pt made aware bed alarm will be activated for safety reason. Pt claimed ambulatory with a walker/cane. Call light kept within reach & return demonstrated how to call for assistance. Ekaterina area noted with some redness, Peg MALONE requested to place a barrier cream as pt reported incontinent sometimes. Home medication entered in the system as pt has it with her on admission. Re: vaccination, pt unable to remember, I will request AM nurse to verify family in AM.
[2020-07-07] MEDS ORDERED: CALC-877 PO (22:37)
[2020-07-07] MEDS ORDERED: ASCO-477 PO (22:37)
[2020-07-07] MEDS ORDERED: METO-409 PO (22:37)
[2020-07-07] MEDS ORDERED: ALPR0.255 PO (22:37)
[2020-07-07] MEDS ORDERED: ALPRAZOLAM 0.25 MG TABLET PO PRN (23:45)
[2020-07-07] MEDS: CEFTRIAXONE SODIUM 1 GM IVP SCH (23:45)
[2020-07-08] VITALS: BP 153/78
[2020-07-08 04:00] VITALS: BP 121/69
[2020-07-08] MEDS: SODIUM CHLORIDE 0.9% 1000ML 1,000 ML IV SCH ×2 (04:23→17:16)
[2020-07-08 06:20] LABS: HEMATOCRIT 31.4 % (36-48); MEAN CORPUSCULAR HEMOGLOBIN 30.3 pg (27.0-33.0); MEAN CORPUSCULAR HGB CONC 33.1 g/dL (32.0-36.0); MEAN CORPUSCULAR VOLUME 91.5 fL (79-99); RED BLOOD CELL COUNT(AUTO) 3.43 MIL/uL (4.00-5.50); RED CELL DISTRIBUTION WIDTH 13.9 % (11.0-15.5); WHITE BLOOD COUNT (AUTO) 7.9 K/uL (4.8-10.8)
[2020-07-08 06:37] LABS: CREATININE 1.2 mg/dL (0.5-1.5); POTASSIUM 3.6 mmol/L (3.5-5.1)
[2020-07-08] MEDS ORDERED: ASPIRIN 81 MG EC TAB PO SCH (09:00)
[2020-07-08 10:23] VITALS: BP 126/62
[2020-07-08] MEDS: HYDROCHLOROTHIAZIDE 25 MG TABLET PO SCH (10:32)
[2020-07-08] MEDS: LOSARTAN 100 MG TABLET PO SCH (10:32)
[2020-07-08] MEDS: CALCIUM 600 + VITAMIN D 400 TABLET PO SCH ×2 (10:32→20:45)
[2020-07-08] MEDS: BACLOFEN 10 MG TABLET PO SCH (10:32)
[2020-07-08] MEDS: METOPROLOL SUCCINATE 50 MG TAB.SR.24H PO SCH (10:33)
[2020-07-08] MEDS: ISOSORBIDE MONO 30MG TAB SR PO SCH (10:33)
[2020-07-08] MEDS: CITALOPRAM 20 MG TABLET PO SCH (10:33)
[2020-07-08] MEDS: PANTOPRAZOLE SODIUM 40 MG TABLET.DR PO SCH ×2 (10:34→17:37)
[2020-07-08 12:00] VITALS: BP 120/74
--- NOTE | 2020-07-08 14:50 | NUR ---
Paged Dr Bobo regarding new consult. Pending call back.
[2020-07-08 16:00] VITALS: BP 119/84
--- NOTE | 2020-07-08 18:58 | NUR ---
cm note met with patient and states resides at home with granddaughter, pt ambulates with cane and walker w seat. has provider 11hrs per day. provider transports to md. dc plan is back to home. no dc needs. Addendum: 07/08/20 at 1901 by LEILA GASTELUM CM Amended: Links added.
[2020-07-08 20:00] VITALS: BP 119/66
[2020-07-08] MEDS: SIMVASTATIN 10 MG TABLET PO SCH (20:44)
[2020-07-08] MEDS: QUETIAPINE FUMARATE 25 MG TAB PO SCH (20:44)
[2020-07-08] MEDS: GABAPENTIN 100 MG CAPSULE PO SCH (20:45)
[2020-07-08] MEDS: CEFTRIAXONE SODIUM 1 GM IVP SCH (23:22)
[2020-07-09] VITALS (23 sets, daily range): BP systolic 106–157; BP diastolic 54–75
[2020-07-09] MEDS: SODIUM CHLORIDE 0.9% 1000ML 1,000 ML IV SCH ×3 (02:32→16:32)
[2020-07-09 05:15] LABS: HEMATOCRIT 27.7 % (36-48); MEAN CORPUSCULAR HEMOGLOBIN 30.8 pg (27.0-33.0); MEAN CORPUSCULAR HGB CONC 32.9 g/dL (32.0-36.0); MEAN CORPUSCULAR VOLUME 93.9 fL (79-99); RED BLOOD CELL COUNT(AUTO) 2.95 MIL/uL (4.00-5.50); RED CELL DISTRIBUTION WIDTH 14.2 % (11.0-15.5); WHITE BLOOD COUNT (AUTO) 5.9 K/uL (4.8-10.8)
[2020-07-09 05:27] LABS: CREATININE 1.2 mg/dL (0.5-1.5); POTASSIUM 3.2 mmol/L (3.5-5.1)
[2020-07-09] MEDS: PANTOPRAZOLE SODIUM 40 MG TABLET.DR PO SCH ×2 (06:04→16:40)
[2020-07-09] MEDS: CALCIUM 600 + VITAMIN D 400 TABLET PO SCH ×2 (09:00→21:16)
[2020-07-09] MEDS: CITALOPRAM 20 MG TABLET PO SCH (09:00)
[2020-07-09] MEDS: METOPROLOL SUCCINATE 50 MG TAB.SR.24H PO SCH (09:00)
[2020-07-09] MEDS: ISOSORBIDE MONO 30MG TAB SR PO SCH (09:00)
[2020-07-09] MEDS: POLYETHYLENE GLYCOL 3350 17 GM POWD.PACK PO SCH (09:00)
[2020-07-09] MEDS: LOSARTAN 100 MG TABLET PO SCH (09:00)
[2020-07-09] MEDS: BACLOFEN 10 MG TABLET PO SCH (09:00)
[2020-07-09] MEDS: HYDROCHLOROTHIAZIDE 25 MG TABLET PO SCH (09:00)
--- NOTE | 2020-07-09 10:21 | NUR ---
OFF UNIT FOR EGD
[2020-07-09] MEDS ORDERED: SIMETHICONE 40 MG/0.6 ML ML ONE (10:35)
[2020-07-09] MEDS ORDERED: PROPOFOL 10 MG/ML 20ML VIAL IV ONE (10:35)
[2020-07-09] MEDS ORDERED: EPHEDRINE SULFATE 50 MG/ML AMPULE ONE (10:52)
--- NOTE | 2020-07-09 11:10 | NUR ---
REPORT FROM GI RECEIVED REPORT PATIENT S/P EGD, ALERT AND ORIENTATED X 3 ON 1 LITER NC WITH O2 SATS 96% VS FOLLOWS : B/P 140/64, P 64 , PLACE ON REG DIET .
--- NOTE | 2020-07-09 11:30 | NUR ---
PATIENT BACK ON UNIT V/S 124/64, P 67 , R 16, O2SATS ON 1 LITER 97%, WILL CONTINUE TO MONITOR
[2020-07-09] MEDS ORDERED: LIDOCAINE HCL-MPF 1% 2ML VIAL IV PRN (13:15)
[2020-07-09] MEDS ORDERED: POTASSIUM CHLORIDE 10% ELIXIR 20 MEQ/15 ML UDCUP PO PRN (13:15)
[2020-07-09] MEDS ORDERED: POTASSIUM CHLORIDE 20MEQ/100ML 100 ML IV PRN (13:15)
[2020-07-09] MEDS: POTASSIUM CHLORIDE 20 MEQ ERTAB PO PRN ×3 (14:09→21:17)
[2020-07-09] MEDS: GABAPENTIN 100 MG CAPSULE PO SCH (21:16)
[2020-07-09] MEDS: SIMVASTATIN 10 MG TABLET PO SCH (21:17)
[2020-07-09] MEDS: QUETIAPINE FUMARATE 25 MG TAB PO SCH (21:17)
[2020-07-10] MEDS: CEFTRIAXONE SODIUM 1 GM IVP SCH (00:10)
--- NOTE | 2020-07-10 02:15 | NUR ---
STABLE Post EGD yesterday,no complications noted.
[2020-07-10 03:53] VITALS: BP 121/73
--- NOTE | 2020-07-10 04:07 | NUR ---
CALM Resting in bed,sleeping,arousable.No distress noted.
[2020-07-10 05:11] LABS: HEMATOCRIT 28.2 % (36-48); MEAN CORPUSCULAR HEMOGLOBIN 30.8 pg (27.0-33.0); MEAN CORPUSCULAR VOLUME 93.4 fL (79-99); PLATELET COUNT (AUTO) 67 K/uL (130-400); RED BLOOD CELL COUNT(AUTO) 3.02 MIL/uL (4.00-5.50); RED CELL DISTRIBUTION WIDTH 14.1 % (11.0-15.5); WHITE BLOOD COUNT (AUTO) 6.1 K/uL (4.8-10.8)
[2020-07-10] MEDS: SODIUM CHLORIDE 0.9% 1000ML 1,000 ML IV SCH ×2 (05:15→14:15)
[2020-07-10 05:18] LABS: CREATININE 1.1 mg/dL (0.5-1.5); MAGNESIUM 1.6 mg/dL (1.80-2.40); POTASSIUM 4.3 mmol/L (3.5-5.1)
[2020-07-10 05:30] LABS: PLATELET MORPHOLOGY COMMENT PLT CLUMPS PRESENT
[2020-07-10] MEDS: PANTOPRAZOLE SODIUM 40 MG TABLET.DR PO SCH ×2 (05:56→16:40)
[2020-07-10 08:11] VITALS: BP 151/68
[2020-07-10] MEDS: HYDROCHLOROTHIAZIDE 25 MG TABLET PO SCH (09:13)
[2020-07-10] MEDS: CITALOPRAM 20 MG TABLET PO SCH (09:13)
[2020-07-10] MEDS: LOSARTAN 100 MG TABLET PO SCH (09:13)
[2020-07-10] MEDS: CALCIUM 600 + VITAMIN D 400 TABLET PO SCH (09:14)
[2020-07-10] MEDS: ISOSORBIDE MONO 30MG TAB SR PO SCH (09:14)
[2020-07-10] MEDS: BACLOFEN 10 MG TABLET PO SCH (09:14)
[2020-07-10] MEDS: POLYETHYLENE GLYCOL 3350 17 GM POWD.PACK PO SCH (09:14)
[2020-07-10] MEDS: METOPROLOL SUCCINATE 50 MG TAB.SR.24H PO SCH (09:14)
[2020-07-10 14:55] VITALS: BP 122/58
[2020-07-10] MEDS ORDERED: PANT40TA55 PO (16:19)
--- NOTE | 2020-07-10 17:05 | NUR ---
1441 RECEIVED VERBAL CONSENT FROM PATIENT FOR IM LETTER, I FAXED IM LETTER TO 1075 AND PLACED IN CHART UNDER CONSENT TAB.
[2020-07-10 18:42] VITALS: BP 148/64
[2020-07-10] MEDS ORDERED: SULF1TAB42 PO (18:50)
--- NOTE | 2020-07-10 18:55 | NUR ---
Discharge Patient discharged home with guardian Peg Correia. Patient IV removed and discharge instructions given to patient and guardian. Family informed that medications were sent to [facility] after confirming it as her preferred pharmacy. Patient and guardian given a chance to answer questions to which they stated understanding and voiced no concerns at this time. Discharge form signed by guardian, Peg Correia and patient transported downstairs via wheelchair.
== END 2020-07-10 19:16 | disposition home or self-care (01) | DRG 378 ==
LOC: EDH 13:28 → EDHIP 17:15 → OBSVTOIN 17:15 → 3DH 20:44
PROVIDERS: ADMIT Internal Medicine Pulmonary Disease; ATTEND Internal Medicine Pulmonary Disease
PROC: 0DB68ZX Excision of Stomach, Via Natural or Artificial Opening Endoscopic, Diagnostic (ICD-10-PCS; principal; 2020-07-09)
PROC: 0D568ZZ Destruction of Stomach, Via Natural or Artificial Opening Endoscopic (ICD-10-PCS; 2020-07-09)
DX: K25.4 Chronic or unspecified gastric ulcer with hemorrhage (principal); N39.0 Urinary tract infection, site not specified; K92.0 Hematemesis; K59.00 Constipation, unspecified; D64.9 Anemia, unspecified; Z20.828 Contact with and (suspected) exposure to other viral communicable diseases; E78.5 Hyperlipidemia, unspecified; I10 Essential (primary) hypertension; E11.9 Type 2 diabetes mellitus without complications; F03.90 Unspecified dementia, unspecified severity, without behavioral disturbance, psychotic disturbance, mood disturbance, and anxiety; K76.89 Other specified diseases of liver; F41.9 Anxiety disorder, unspecified; K57.90 Diverticulosis of intestine, part unspecified, without perforation or abscess without bleeding; T39.395A Adverse effect of other nonsteroidal anti-inflammatory drugs [NSAID], initial encounter; Y92.89 Other specified places as the place of occurrence of the external cause; Z79.84 Long term (current) use of oral hypoglycemic drugs; Z83.3 Family history of diabetes mellitus; Z80.52 Family history of malignant neoplasm of bladder; K29.71 Gastritis, unspecified, with bleeding
CPT/HCPCS: 36415; 43239; 43255; 74176; 80048; 80076; 81001; 82550; 82948; 83605; 83690; 83735; 84484; 85014; 85018; 85025; 85027; 85610; 85730; 86850; 86900; 86901; 87040; 87088; 87426; 93005; 99291; C9113; G0378; J0696; J2405; J2704; J3490; J7030; J7040

== ENCOUNTER 2020-08-16 12:35 | Emergency (ER) | payer OTHER, MEDICARE ==
[~2020-08-16 12:35] MED LIST changes: +ASCO-477 PO; -ASCO500T92 PO; -ASPI-1443 PO; +ESCI-8 PO; -ESCI10TA54 PO; -ISOS30TA6 PO; +ISOS30TA92 PO; +METO-409 PO; +PANT40TA55 PO; +QUET25TA34 PO; -QUET25TA74 PO; +SULF1TAB42 PO
[2020-08-16 13:11] LABS: BASOPHILS % (AUTO) 0.5 % (0.0-5.0); EOSINOPHILS % (AUTO) 0.7 % (0.0-8.0); HEMATOCRIT 36.7 % (36-48); MEAN CORPUSCULAR HEMOGLOBIN 31.1 pg (27.0-33.0); MEAN CORPUSCULAR VOLUME 94.3 fL (79-99); MONOCYTES % (AUTO) 11.7 % (3.0-13.0); NEUTROPHILS % (AUTO) 51.9 % (40.0-77.0); PLATELET COUNT (AUTO) 77 K/uL (130-400); RED BLOOD CELL COUNT(AUTO) 3.89 MIL/uL (4.00-5.50); RED CELL DISTRIBUTION WIDTH 14.4 % (11.0-15.5); WHITE BLOOD COUNT (AUTO) 5.6 K/uL (4.8-10.8)
[2020-08-16 13:27] LABS: ALBUMIN 3.9 g/dL (3.5-5.0); BILIRUBIN,TOTAL 0.5 mg/dL (0.2-1.0); CREATININE 1.7 mg/dL (0.5-1.5); TOTAL PROTEIN, SERUM 7.4 g/dL (6.0-8.3)
[2020-08-16 13:33] LABS: RAPID GROUP A STREP NEGATIVE (NEGATIVE)
[2020-08-16 13:44] LABS: INR 0.96 (0.85-1.15); PARTIAL THROMBOPLASTIN TIME 27.3 SEC (26.3-35.5); PROTHROMBIN TIME 10.4 SEC (9.6-11.6)
[2020-08-16 13:47] LABS: B-TYPE NATRIURETIC PEPTIDE 366 pg/mL (0-100)
== END 2020-08-16 16:05 | disposition home or self-care (01) ==
LOC: EDH 12:35
DX: U07.1 COVID-19 (principal); B34.9 Viral infection, unspecified; F41.9 Anxiety disorder, unspecified; F32.9 Major depressive disorder, single episode, unspecified; E11.9 Type 2 diabetes mellitus without complications; E78.5 Hyperlipidemia, unspecified; I10 Essential (primary) hypertension; M19.90 Unspecified osteoarthritis, unspecified site; K21.9 Gastro-esophageal reflux disease without esophagitis; Z72.0 Tobacco use
CPT/HCPCS: 36415; 71045; 80053; 82550; 83605; 83880; 84484; 85025; 85610; 85730; 87040 ×2; 87426; 87804 ×2; 87880; 93005; 99285; C9803; U0003

== ENCOUNTER 2021-10-15 10:47 | Inpatient (IN) | payer OTHER, MEDICARE ==
[~2021-10-15] VITALS: Ht 152.4 cm; Wt 57.2 kg
[~2021-10-15 10:47] MED LIST changes: -QUET25TA34 PO; +QUET25TA36 PO
[2021-10-15] MEDS ORDERED: ACETAMINOPHEN 500 MG TABLET PO SCH (11:30)
[2021-10-15] MEDS ORDERED: ACETAMINOPHEN 500 MG TABLET ONE (11:32)
[2021-10-15] MEDS ORDERED: DOXYCYCLINE HYCLATE 100 MG TABLET PO SCH (12:00)
[2021-10-15] MEDS ORDERED: DEXAMETHASONE SOD PHOSPHATE 4 MG/ML 1ML VIAL IVP SCH (12:00)
[2021-10-15] MEDS ORDERED: CEFTRIAXONE 1G VIAL IVP SCH (12:00)
[2021-10-15 12:13] LABS: HEMATOCRIT 45.8 % (36-48); MEAN CORPUSCULAR HEMOGLOBIN 28.5 pg (27.0-33.0); MEAN CORPUSCULAR HGB CONC 33.4 g/dL (32.0-36.0); MEAN CORPUSCULAR VOLUME 85.3 fL (79-99); PLATELET COUNT (AUTO) 164 K/uL (130-400); RED BLOOD CELL COUNT(AUTO) 5.37 MIL/uL (4.00-5.50); RED CELL DISTRIBUTION WIDTH 18.1 % (11.0-15.5); WHITE BLOOD COUNT (AUTO) 11.2 K/uL (4.8-10.8)
[2021-10-15 12:23] LABS: APPEARANCE,URINE CLOUDY (CLEAR); BILIRUBIN,URINE NEGATIVE (NEGATIVE); COLOR,URINE YELLOW (YELLOW); GLUCOSE, URINE (UA) NEGATIVE (NEGATIVE); KETONES,URINE NEGATIVE (NEGATIVE); LEUKOCYTE ESTERASE ,URINE LARGE (NEGATIVE); NITRATE,URINE NEGATIVE (NEGATIVE); OCCULT BLOOD,URINE TRACE-INTACT (NEGATIVE); PROTEIN,URINE TRACE mg/dL (NEGATIVE); UROBILINOGEN,URINE 0.2 mg/dL (0.2-1.0)
[2021-10-15 12:26] LABS: PROTHROMBIN TIME 10.9 SEC (9.6-11.6)
[2021-10-15 12:27] LABS: PARTIAL THROMBOPLASTIN TIME 31.4 SEC (26.3-35.5)
[2021-10-15 12:28] LABS: CREATININE 1.7 mg/dL (0.5-1.5); POTASSIUM 3.4 mmol/L (3.5-5.1)
[2021-10-15 12:37] LABS: BILIRUBIN,TOTAL 1.3 mg/dL (0.2-1.0); TOTAL PROTEIN, SERUM 8.3 g/dL (6.0-8.3)
[2021-10-15 12:44] LABS: BACTERIA,URINE Many /HPF (None Seen); RBC,URINE 0-1 /HPF (0-1); SQUAMOUS EPITHELIAL CELL,UR 0-2 /HPF (0-2)
[2021-10-15 13:05] LABS: LYMPHOCYTES % (MANUAL) 12 % (22-44); MAN.DIFF COMMENT-IMPRESSION MANUAL DIFFERENTIAL; MONOCYTES % (MANUAL) 5 % (2-9); PLATELET MORPHOLOGY COMMENT ADEQUATE; SEGMENTED NEUTROPHILS % 83 % (40-70)
[2021-10-15] MEDS: PHARMACY COMMUNICATION MISC SCH ×2 (14:27→22:30)
[2021-10-15] MEDS ORDERED: DEXTROSE 50%-WATER 50 ML DISP.SYRIN IV PRN (14:30)
[2021-10-15] MEDS ORDERED: ACETAMINOPHEN 325 MG TAB PO PRN (14:30)
[2021-10-15] MEDS ORDERED: ONDANSETRON 4MG INJ IVP PRN (14:30)
[2021-10-15] MEDS: INSULIN R PO SS1 SQ SCH ×2 (16:30→20:12)
[2021-10-15] MEDS: DOXYCYCLINE HYCLATE 100 MG TABLET PO SCH (20:22)
[2021-10-16 00:26] VITALS: BP 117/75
[2021-10-16 03:46] VITALS: BP 103/58
[2021-10-16] MEDS: INSULIN R PO SS1 SQ SCH ×4 (05:51→21:00)
[2021-10-16] MEDS: PHARMACY COMMUNICATION MISC SCH ×3 (06:30→22:17)
[2021-10-16 08:00] VITALS: BP 116/51
[2021-10-16] MEDS: DOXYCYCLINE HYCLATE 100 MG TABLET PO SCH ×2 (09:57→20:03)
[2021-10-16] MEDS: ENOXAPARIN SODIUM 30 MG/0.3 ML SQ SCH (09:57)
[2021-10-16 10:09] LABS: HEMATOCRIT 44.8 % (36-48); MEAN CORPUSCULAR HEMOGLOBIN 28.4 pg (27.0-33.0); MEAN CORPUSCULAR VOLUME 85.8 fL (79-99); RED BLOOD CELL COUNT(AUTO) 5.22 MIL/uL (4.00-5.50); RED CELL DISTRIBUTION WIDTH 17.8 % (11.0-15.5); WHITE BLOOD COUNT (AUTO) 7.7 K/uL (4.8-10.8)
[2021-10-16 10:18] LABS: CREATININE 1.7 mg/dL (0.5-1.5); POTASSIUM 3.4 mmol/L (3.5-5.1)
[2021-10-16 12:00] VITALS: BP 131/59
[2021-10-16] MEDS: CEFTRIAXONE 1G VIAL IVP SCH (12:17)
[2021-10-16] MEDS ORDERED: MIRT-73 PO (12:52)
[2021-10-16] MEDS ORDERED: ALEN70TA80 PO (12:52)
[2021-10-16 16:00] VITALS: BP 113/62
[2021-10-16 20:00] VITALS: BP 100/53
[2021-10-17] VITALS: BP 113/56
[2021-10-17 04:00] VITALS: BP 123/67
[2021-10-17] MEDS: INSULIN R PO SS1 SQ SCH ×4 (06:03→20:30)
[2021-10-17] MEDS: PHARMACY COMMUNICATION MISC SCH ×3 (06:03→22:15)
[2021-10-17 08:00] VITALS: BP 150/75
[2021-10-17] MEDS: DOXYCYCLINE HYCLATE 100 MG TABLET PO SCH ×2 (09:17→20:30)
[2021-10-17] MEDS: DEXAMETHASONE 4 MG TAB PO SCH (09:18)
[2021-10-17] MEDS: ENOXAPARIN SODIUM 30 MG/0.3 ML SQ SCH (09:19)
[2021-10-17 12:00] VITALS: BP 120/76
[2021-10-17] MEDS: CEFTRIAXONE 1G VIAL IVP SCH (12:00)
[2021-10-17 16:00] VITALS: BP 132/92
[2021-10-17 20:00] VITALS: BP 108/41
[2021-10-18] VITALS: BP 132/82
[2021-10-18 04:00] VITALS: BP_SYST 113; BP_SYST 154; BP_DIAS 54; BP_DIAS 94
[2021-10-18] MEDS: PHARMACY COMMUNICATION MISC SCH ×2 (06:23→14:17)
[2021-10-18] MEDS: INSULIN R PO SS1 SQ SCH ×2 (06:23→11:30)
[2021-10-18 08:00] VITALS: BP 128/86
[2021-10-18] MEDS: DOXYCYCLINE HYCLATE 100 MG TABLET PO SCH ×2 (09:31→21:34)
[2021-10-18] MEDS: DEXAMETHASONE 4 MG TAB PO SCH (09:31)
[2021-10-18] MEDS: ENOXAPARIN SODIUM 30 MG/0.3 ML SQ SCH (09:32)
[2021-10-18 12:00] VITALS: BP 144/85
[2021-10-18] MEDS: CEFTRIAXONE 1G VIAL IVP SCH (12:06)
[2021-10-18] MEDS ORDERED: ALPRAZOLAM 0.25 MG TABLET ONE (14:11)
[2021-10-18 16:00] VITALS: BP 125/80
[2021-10-18 20:10] VITALS: BP 144/70
[2021-10-18] MEDS ORDERED: ALPRAZOLAM 0.25 MG TABLET PO SCH (21:00)
== END 2021-10-18 23:13 | disposition home or self-care (01) | DRG 871 ==
LOC: EDH 10:47 → OBSVTOIN 13:25 → UNDOADMOB 13:25 → INTOOBSV 13:25 → EDHIP 13:25 → 4AH 23:25 → OBSVTOIN 10-16 15:10 → INTOOBSV 10-16 15:10 → 4BH 10-18 08:33 → 4AH 10-18 08:33 → UNDODISIN 10-18 23:13
PROVIDERS: ADMIT Internal Medicine Infectious Disease; ATTEND Internal Medicine Infectious Disease
PROC: 5A09357 Assistance with Respiratory Ventilation, Less than 24 Consecutive Hours, Continuous Positive Airway Pressure (ICD-10-PCS; principal; 2021-10-18)
DX: A41.50 Gram-negative sepsis, unspecified (principal); U07.1 COVID-19; J96.01 Acute respiratory failure with hypoxia; J12.82 Pneumonia due to coronavirus disease 2019; N39.0 Urinary tract infection, site not specified; F32.A Depression, unspecified; E11.40 Type 2 diabetes mellitus with diabetic neuropathy, unspecified; H54.62 Unqualified visual loss, left eye, normal vision right eye; I10 Essential (primary) hypertension; E78.5 Hyperlipidemia, unspecified; E87.6 Hypokalemia; E78.00 Pure hypercholesterolemia, unspecified; B96.20 Unspecified Escherichia coli [E. coli] as the cause of diseases classified elsewhere; M79.10 Myalgia, unspecified site; Z78.9 Other specified health status; Z87.440 Personal history of urinary (tract) infections; Z90.49 Acquired absence of other specified parts of digestive tract; Z83.3 Family history of diabetes mellitus
CPT/HCPCS: 36415; 71045; 80048; 80053; 81001; 82550; 82948; 83605; 83874; 84484; 85025; 85027; 85378; 85610; 85730; 86140; 87040; 87077; 87088; 87186; 87635; 87804; 93005; G0378; J0696; J1100; J1650; J2405; J8540